=== PATIENT | female | born 1970 | race Caucasian/White ===

== ENCOUNTER 2016-11-20 02:33 | Emergency (ER) | payer BC ==
[~2016-11-20] VITALS: Ht 165.1 cm; Wt 102.2 kg
[~2016-11-20 02:33] MED LIST: ATIVAN1 MG PO; CELEBREX200 MG PO; COUMADIN,JANTOVE2 MG PO; Coumadin dosing per PO; FEOSOL325 MG PO; HYDROCHLOROTHIA25 MG PO; HYDROCHLOROTHIAZIDE; HYDRODIURIL,O12.5 M2 PO; LISINOPRIL10 MG PO; LOPRESSOR50 MG PO; SENOKOT S,PE1 TABLET PO; THERAGRAN1 TABLET PO; Vicodin,Lortab 5/500 PO
[2016-11-20 03:01] LABS: HEMATOCRIT 39.4 % (36.0-46.0); MCH 29.3 PG (29.0-34.0); MCHC 33.8 G/DL (30.0-36.0); MCV 86.8 FL (83-99); MEAN PLAT.VOLUME 11.1 uM^3 (9.5-12.4); PLATELET COUNT 230 K/uL (156-360); RBC DIS.WIDTH-CV 12.9 % (11.8-14.6); RBC DIS.WIDTH-SD 39.7 % (39-53); RED BLOOD COUNT 4.54 M/uL (3.80-5.20)
[2016-11-20 03:11] LABS: CHLORIDE 105 mEq/L (99-109); POTASSIUM 4.1 mEq/L (3.7-5.4); SODIUM 142 mEq/L (136-147)
[2016-11-20 03:13] LABS: GLUCOSE 159 mg/dL (70-99)
[2016-11-20 03:15] LABS: ANION GAP 11 MEQ/L (2-14)
[2016-11-20 03:17] LABS: GFR ESTIMATE (CALCULATED) > 59 mL/min/
[2016-11-20 03:18] LABS: UREA NITROGEN (BUN) 18 mg/dL (9-23)
[2016-11-20 03:22] LABS: TROP-I INTERPRETATION NEGATIVE; TROPONIN-I < 0.01 ng/mL (0.0-0.30)
[2016-11-20 05:38] LABS: TROP-I INTERPRETATION NEGATIVE; TROPONIN-I < 0.01 ng/mL (0.0-0.30)
[2016-11-20] MEDS ORDERED: PEPCID20 MG PO (05:47)
[2016-11-20 06:07] VITALS: BP 124/79
== END 2016-11-20 06:09 | disposition home or self-care (01) ==
LOC: EME 02:33
PROVIDERS: Emergency Medicine
DX: R07.89 Other chest pain (principal); R19.7 Diarrhea, unspecified; R09.81 Nasal congestion; E11.9 Type 2 diabetes mellitus without complications; I10 Essential (primary) hypertension; Z96.641 Presence of right artificial hip joint
CPT/HCPCS: 71020; 80048; 84484; 85027; 93005; 99281; 99284